=== PATIENT | male | born 1995 | race Caucasian/White ===

== ENCOUNTER 2020-07-29 11:54 | Emergency (ER) | payer BC ==
--- NOTE | 2020-07-29 13:02 | EDM.PDOC ---
ED HPI GENERAL MEDICAL PROBLEM - General Chief Complaint: ENT Problem Stated Complaint: SINUS INFECTION OR ALLERGY Time Seen by Provider: 07/29/20 12:55 Source of Information: Reports: Patient, RN, RN Notes Reviewed History Limitations: Reports: No Limitations - History of Present Illness INITIAL COMMENTS - FREE TEXT/NARRATIVE: Patient presents to the ED via personal vehicle with complaints of runny nose, fullness in face, and headache. He states the symptoms began about three days ago while he was sitting in his straw duck blind. He does attest to a cough due to post-nasal drip. The patient denies fever, shaking chills, chest pain, chest pressure, palpitations, ear pain/pressure/drainage, or sore throat. He denies shortness of breath, but does attest to some wheeziness. The patient states he has trial Mucinex, Claritin, and Pseudoephedrine, but has not received any relief and the symptoms are progressing. - Related Data Allergies Allergy/AdvReac Type Severity Reaction Status Date / Time seasonal Allergy Other Uncoded 07/29/20 12:21 Home Meds: Home Meds . [No Known Home Meds] 07/29/20 [History] Past Medical History HEENT History: Reports: Allergic Rhinitis Cardiovascular History: Reports: None Respiratory History: Reports: None Gastrointestinal History: Reports: None Genitourinary History: Reports: None Musculoskeletal History: Reports: None Neurological History: Reports: None Psychiatric History: Reports: None Endocrine/Metabolic History: Reports: None Hematologic History: Reports: None Immunologic History: Reports: None Oncologic (Cancer) History: Reports: None Dermatologic History: Reports: None - Infectious Disease History Infectious Disease History: Reports: None - Past Surgical History Head Surgeries/Procedures: Reports: None HEENT Surgical History: Reports: Tonsillectomy Social & Family History - Tobacco Use Smoking Status *Q: Never Smoker Second Hand Smoke Exposure: No - Caffeine Use Caffeine Use: Reports: Soda - Recreational Drug Use Drug Use in Last 12 Months: No ED ROS ENT - Review of Systems Review Of Systems: Comprehensive ROS is negative, except as noted in HPI. ED EXAM, ENT - Physical Exam Exam: See Below Exam Limited By: No Limitations General Appearance: Alert, WD/WN, No Apparent Distress Ears: Normal External Exam, Normal Canal, TM Fluid. No: Canal Blood, TM Erythema, TM Blood, TM Perforation, Cerumen Impaction Nose: Nasal Discharge (Clear), Nasal Swelling, Nasal Tenderness, Injected Turb inates Mouth/Throat: Normal Inspection, Normal Lips, Normal Oropharynx, Normal Teeth Head: Atraumatic, Normocephalic Neck: Normal Inspection, Supple, Non-Tender. No: Lymphadenopathy (L), Lymphadenopathy (R) Respiratory/Chest: No Respiratory Distress, No Accessory Muscle Use Neurological: Alert, Oriented, CN II-XII Intact Lymphatic: No Adenopathy Course - Vital Signs Last Recorded V/S: Last Vital Signs Temp 98.7 F 07/29/20 12:15 Pulse 105 H 07/29/20 12:15 Resp 18 07/29/20 12:15 BP 170/104 H 07/29/20 12:24 Pulse Ox 96 07/29/20 12:15 Departure - Departure Time of Disposition: 13:04 Disposition: Home, Self-Care 01 Clinical Impression: Acute sinusitis Qualifiers: Sinusitis location: frontal Recurrence: not specified as recurrent Qualified Code(s): J01.10 - Acute frontal sinusitis, unspecified - Discharge Information *PRESCRIPTION DRUG MONITORING PROGRAM REVIEWED*: Not Applicable *COPY OF PRESCRIPTION DRUG MONITORING REPORT IN PATIENT TERA: Not Applicable Forms: ED Department Discharge Additional Instructions: Rx: Augmentin 875mg/125mg Take all of medication as prescribed until gone. Follow up in clinic with primary care provider should symptoms persist. Utilize antihistamine, such as Benadryl, for acute symptoms. Sepsis Event Note (ED) - Evaluation Sepsis Screening Result: No Definite Risk - Focused Exam Vital Signs: Vital Signs Temp Pulse Resp BP Pulse Ox 07/29/20 12:24 170/104 H 07/29/20 12:15 98.7 F 105 H 18 173/114 H 96
== END 2020-07-29 13:18 | disposition home or self-care (01) ==
LOC: DL.ED 11:54
DX: J01.10 Acute frontal sinusitis, unspecified (principal); Z91.09 Other allergy status, other than to drugs and biological substances
CPT/HCPCS: 99284